=== PATIENT | male | born 1990 ===

== ENCOUNTER 2022-11-27 08:24 | Day surgery (SDC) | payer OTHER ==
[~2022-11-27] VITALS: Ht 180.3 cm; Wt 97.1 kg
[2022-11-27] VITALS (9 sets, daily range): BP systolic 133–163; BP diastolic 75–90
[~2022-11-27 08:24] MED LIST: BUPR1FIL3 SL; DICL20GE TOP; IBUP-1984 PO; ROPIVAcaine 0.5% (5mg/ml) 30ml vial ONE; Thrombin (Bovine) 5,000 unit vial TP ONE; ceFAZolin inj. 2,000 MG in dextrose 5%-water 100 ML IV ONE; epiNEPHrine 1 mg/ml inj ONE; famotidine 20mg tablet PO ONE; gelatin sponge, absorbable (Gelfoam 100) sponge TP ONE; ringers solution, lacted 1,000 ML IV SCH
[2022-11-27] MEDS ORDERED: midazolam 1 mg/ML 2ml injection ONE ×2 (11:28→12:06)
[2022-11-27] MEDS ORDERED: fentaNYL/PF 50MCG/1 ML 2ML syringe ONE ×2 (11:28→12:21)
[2022-11-27] MEDS ORDERED: sevoflurane 250ml liquid IH ONE (11:50)
[2022-11-27] MEDS ORDERED: morphine 2 MG/ML inj. syringe IV PRN (12:15)
[2022-11-27] MEDS ORDERED: meperidine/PF 25mg/ml syringe IV PRN ×3 (12:15)
[2022-11-27] MEDS ORDERED: ringers solution, lacted 1,000 ML IV SCH (12:15)
[2022-11-27] MEDS ORDERED: ondansetron/PF 4mg/2ml inj IV PRN (12:15)
[2022-11-27] MEDS ORDERED: proCHLORperazine 10 MG/2 ml inj IV PRN (12:15)
[2022-11-27] MEDS ORDERED: morphine 4 MG/ML inj SYRINge IV PRN (12:15)
[2022-11-27] MEDS ORDERED: acetaminophen 1,000mg/100ml IV 100 ML IV ONE (12:36)
[2022-11-27] MEDS ORDERED: dexamethasone sod phosphate 4mg/ml inj. ONE (12:37)
[2022-11-27] MEDS ORDERED: ROPIVAcaine 0.5% (5mg/ml) 30ml vial ONE (12:37)
[2022-11-27] MEDS ORDERED: propofol inj 20 ML IV ONE (12:37)
[2022-11-27] MEDS ORDERED: LIDOcaine 1%/PF 5ML 10 MG/ML VIAL ONE (12:37)
[2022-11-27] MEDS ORDERED: ondansetron/PF 4mg/2ml inj ONE (12:37)
--- NOTE | 2022-11-27 14:14 | NUR ---
Received from OR via [facility], accompanied by Anesthesiologist and report given by DMITRIY Anesthesiologist. PATIENT UNCONSCIOUS WITH LMA, NO S/S OF PAIN, V/S WNL, 20G TO LEFT AC, DRESSING to RIGHT KNEE C/D/I. Addendum: 11/27/22 at 1452 by Dave Ibarra RN Amended: Links added.
--- NOTE | 2022-11-27 15:24 | NUR ---
ALL DISCHARGE CRITERIA HAS BEEN MET. VSS, PAIN AT A TOLERABLE LEVEL, VOIDING AND ABLE TO SAFELY AMBULATE AND TRANSFER SELF. IV TAKEN OUT WITHOUT ANY COMPLICATIONS. ALL DISCHARGE INSTRUCTIONS COVERED WITH PATIENT AND ALL QUESTIONS ANSWERED. PATIENT TAKEN OUT VIA WHEELCHAIR WITH ALL BELONGINGS TO PERSONAL VEHICLE WHERE FAMILY DROVE PATIENT HOME. Addendum: 11/27/22 at 1531 by Dave Ibarra RN Amended: Links added. Addendum: 11/27/22 at 1532 by Dave Ibarra RN ALL DISCHARGE CRITERIA HAS BEEN MET. VSS, PAIN AT A TOLERABLE LEVEL, ABLE TO SAFELY AMBULATE AND TRANSFER SELF. IV TAKEN OUT WITHOUT ANY COMPLICATIONS. ALL DISCHARGE INSTRUCTIONS COVERED WITH PATIENT AND ALL QUESTIONS ANSWERED. PATIENT TAKEN OUT VIA WHEELCHAIR WITH ALL BELONGINGS TO PERSONAL VEHICLE WHERE [facility] OFFICERS BRING BACK.
== END 2022-11-27 15:24 ==
LOC: PAS 08:24 → EEVIPCON 12:00 → PAS 15:24
PROVIDERS: ATTEND Orthopaedic Surgery
DX: S83.511A Sprain of anterior cruciate ligament of right knee, initial encounter (principal); S83.231A Complex tear of medial meniscus, current injury, right knee, initial encounter; S83.281A Other tear of lateral meniscus, current injury, right knee, initial encounter; G89.18 Other acute postprocedural pain; Z88.2 Allergy status to sulfonamides; X58.XXXA Exposure to other specified factors, initial encounter; Y93.89 Activity, other specified; Y92.89 Other specified places as the place of occurrence of the external cause; Y99.8 Other external cause status
CPT/HCPCS: 29880; 29888; 64447; 82948; C1713; C1762; J0131; J0690; J1100; J2175; J2250; J2270; J2405; J2704; J2795; J3010; J3490; J7030; J7060; J7120; L1832; Z7506; Z7508; Z7512; A4215; A4618; A6449; A7000; J0171